=== PATIENT | male | born 1950 | race Caucasian/White ===

== ENCOUNTER 2020-10-29 23:51 | Emergency (ER) | payer OTHER ==
[~2020-10-29] VITALS: Ht 167.6 cm; Wt 81.6 kg
[~2020-10-29 23:51] MED LIST: PROP20TA19 PO
--- NOTE | 2020-10-30 00:20 | NUR ---
Inserted in/out chawla cath as ordered by SAJAN.
[2020-10-30 00:25] LABS: *BILIRUBIN,URIN NEGATIVE (NEGATIVE); *BLOOD, URINE 3+ (NEGATIVE); *COLOR,URINE YELLOW (YELLOW); *KETONES,URINE NEGATIVE (NEGATIVE); *UROBILINOGEN,URINE 0.2 E.U./dl (NORMAL); LEUKOCYTE ESTERASE ,URINE TRACE (NEGATIVE); NITRITE, URINE NEGATIVE (NEGATIVE); PH,URINE 6.5 (5.0-8.0); UGLUCOSE NEGATIVE (NEGATIVE)
[2020-10-30] MEDS ORDERED: NITR100C6 PO (00:26)
[2020-10-30 00:29] LABS: *CLARITY,URINE HAZY (CLEAR)
--- NOTE | 2020-10-30 00:32 | NUR ---
Drained 650ml of clear urine from in/out chawla cath.
--- NOTE | 2020-10-30 00:33 | NUR ---
IN/OUT chawla removed.
--- NOTE | 2020-10-30 00:37 | NUR ---
Patient discharged to home in stable condition. A/O x4, no SOB or labored breathing. No c/o pain/discomfort. Written and verbal after care instructions given. Patient verbalizes understanding of instructions. Stressed follow up or return to ER for worsening s/s. Steady gait.
[2020-10-30 00:38] VITALS: BP 122/87
[2020-10-30 00:39] LABS: RBC,URINE 50-80 /HPF (0-3)
[2020-10-30 00:40] LABS: BACTERIA,URINE FEW /HPF (NONE SEEN); SQUAMOUS EPITHELIAL CELL,UR FEW /HPF (NONE SEEN)
== END 2020-10-30 00:41 | disposition home or self-care (01) ==
LOC: ER 23:58
DX: N40.1 Benign prostatic hyperplasia with lower urinary tract symptoms (principal); R33.8 Other retention of urine; I10 Essential (primary) hypertension
CPT/HCPCS: 87086; A4663; C1758